=== PATIENT | female | born 1935 | race Caucasian/White ===

== ENCOUNTER → 2017-12-05 | Outpatient (CLI) | payer MEDICARE, OTHER ==
[~2017-12-05] MED LIST: ACET325 PO; AZO CRANBERRY250 MG PO; BACL10 PO; CALCIUM 600+D1 EACH PO; CENTRUM SILVER1 EAC2 PO; HYDACE5 PO; HYDCHL12.5; HYDCHL25 PO; LISI20; LOSA25 PO; MELATONIN5 M1 PO; Omeprazole20 M1; POTASSIUM99 MG PO; PROBIOTIC1 EAC1 PO; TRAM50 PO; VITAMIN D31000 UNIT PO; Vision Vitamin1 EACH PO
[2017-12-05 15:59] LABS: BASOPHILS ABSOLUTE AUTO 0.04 K/mm3 (0.00-0.23); BASOPHILS PERCENT AUTO 0 % (0-2); EOSINOPHILS ABSOLUTE AUTO 0.21 K/mm3 (0.00-0.68); EOSINOPHILS PERCENT AUTO 2 % (0-6); Hemoglobin 11.3 g/dL (11.5-16.0); IMMATURE GRAN ABSOLUTE AUTO 0.02 K/mm3 (0.00-0.10); IMMATURE GRAN PERCENT AUTO 0 % (0-1); LYMPHOCYTES ABSOLUTE AUTO 1.24 K/mm3 (0.84-5.20); LYMPHOCYTES PERCENT AUTO 14 % (21-46); MONOCYTES ABSOLUTE AUTO 0.84 K/mm3 (0.16-1.47); MONOCYTES PERCENT AUTO 9 % (4-13); Mean Corpuscular HGB 26.5 pg (26.0-34.0); Mean Corpuscular HGB Conc 32.3 g/dL (31.5-36.5); Mean Corpuscular Volume 82 fL (80-100); Mean Platelet Volume 10.6 fL (9.1-12.4); NEUTROPHILS ABSOLUTE AUTO 6.68 K/mm3 (1.96-9.15); NEUTROPHILS PERCENT AUTO 74 % (41-73); Platelet Count 217 K/mm3 (150-400); RDW Coefficient Variation 14.2 % (11.7-14.2); RDW Standard Deviation 41.5 fL (35.1-46.3); Red Blood Cell Count 4.26 M/mm3 (3.80-5.20); White Blood Cell Count 9.03 K/mm3 (4.00-11.30)
[2017-12-05 16:15] LABS: Alanine Aminotransfer (ALT/SGP 28 U/L (12-78); Albumin, Blood 3.5 g/dL (3.4-5.0); Albumin/Globulin Ratio 0.9 (0.8-1.8); Alk Phos 88 U/L (40-126); Anion Gap 8 mmol/L (6-16); Aspartate Aminotrans (AST/SGOT 22 U/L (12-37); Bilirubin, Total 0.4 mg/dL (0.1-1.0); Blood Urea Nitrogen 14 mg/dL (8-24); Bun/Creatinine Ratio 18.7 (12.0-20.0); CO2, Blood 30 mmol/L (21-32); Calcium, Blood 8.9 mg/dL (8.5-10.1); Chloride, Blood 100 mmol/L (98-108); Creatinine, Blood 0.75 mg/dL (0.40-1.00); Glomerular Filtration Rate >60 (60-); Glucose, Blood 91 mg/dL (70-99); Potassium, Blood 3.7 mmol/L (3.5-5.5); Sodium, Blood 138 mmol/L (136-145); Total Protein, Blood 7.5 g/dL (6.4-8.2)
== END ==
LOC: LAB EV 15:55
PROVIDERS: Physician Assistant Surgical
DX: R10.9 Unspecified abdominal pain (principal)
CPT/HCPCS: 80053; 85025

== ENCOUNTER 2018-06-11 07:16 | Day surgery (SDC) | payer MEDICARE, OTHER ==
[~2018-06-11] VITALS: Ht 152.4 cm; Wt 70.0 kg
[~2018-06-11 07:16] MED LIST changes: -ACET325 PO; -AZO CRANBERRY250 MG PO; -BACL10 PO; -CALCIUM 600+D1 EACH PO; -CENTRUM SILVER1 EAC2 PO; -LOSA25 PO; -MELATONIN5 M1 PO; -POTASSIUM99 MG PO; -PROBIOTIC1 EAC1 PO; -TRAM50 PO; -VITAMIN D31000 UNIT PO; -Vision Vitamin1 EACH PO
[2018-06-11] MEDS ORDERED: CALCIUM 600+D1 EACH PO (07:56)
[2018-06-11] MEDS ORDERED: ACET325 PO (07:57)
[2018-06-11] MEDS ORDERED: POTASSIUM99 MG PO (07:57)
[2018-06-11] MEDS ORDERED: PROBIOTIC1 EAC1 PO (07:57)
[2018-06-11] MEDS ORDERED: TRAM50 PO (07:58)
[2018-06-11] MEDS ORDERED: VITAMIN D31000 UNIT PO (07:59)
[2018-06-11] MEDS ORDERED: BACL10 PO (07:59)
[2018-06-11] MEDS ORDERED: LOSA25 PO (07:59)
[2018-06-11] MEDS ORDERED: Vision Vitamin1 EACH PO (07:59)
[2018-06-11] MEDS ORDERED: CENTRUM SILVER1 EAC2 PO (08:00)
[2018-06-11] MEDS ORDERED: AZO CRANBERRY250 MG PO (08:01)
[2018-06-11] MEDS ORDERED: MELATONIN5 M1 PO (08:01)
== END 2018-06-11 09:56 | disposition home or self-care (01) ==
LOC: ORSCSDS 07:16
PROVIDERS: Orthopaedic Surgery
PROC: 01N50ZZ Release Median Nerve, Open Approach (ICD-10-PCS; principal; 2018-06-11 08:45)
DX: G56.02 Carpal tunnel syndrome, left upper limb (principal); I10 Essential (primary) hypertension; K21.9 Gastro-esophageal reflux disease without esophagitis; E78.5 Hyperlipidemia, unspecified; N28.9 Disorder of kidney and ureter, unspecified; Z79.899 Other long term (current) drug therapy
CPT/HCPCS: J0690; J2405; J3010; J7120

== ENCOUNTER 2020-03-16 08:56 | Day surgery (SDC) | payer MEDICARE, OTHER ==
[~2020-03-16] VITALS: Ht 152.4 cm; Wt 68.5 kg
[~2020-03-16 08:56] MED LIST changes: +ACET325 PO; +ASPIR 8181 M1 PO; +ATOR40TA PO; +AZO CRANBERRY PO; +AZO CRANBERRY250 MG PO; +Aspir 8181 MG PO; +BACL10 PO; +BACLOFEN5 MG PO; +CALCIUM 600+D1 EACH PO; +CALCIUM600 MG PO; +CENTRUM SILVER1 EAC2 PO; +CLOP75 PO; +ERGO400 PO; +FURO20 PO; +HYDROCHLOROTH12.5 MG PO; +LOSA25 PO; +LOSARTAN POTAS100 M1 PO; +MELA3 PO; +OMEP20ER PO; -Omeprazole20 M1; +Omeprazole20 M1 PO; +POTASSIUM99 MG PO; +PROBIOTIC1 EAC1 PO; +PROBIOTIC1 EAC7 PO; +TRAM50 PO; +VITAMIN D31000 UNIT PO; +Vision Vitamin1 EACH PO
== END 2020-03-16 11:14 | disposition home or self-care (01) ==
LOC: ORSCSDS 08:56
PROVIDERS: Internal Medicine Gastroenterology
PROC: 0DBK8ZX Excision of Ascending Colon, Via Natural or Artificial Opening Endoscopic, Diagnostic (ICD-10-PCS; principal; 2020-03-16 10:15)
DX: Z12.11 Encounter for screening for malignant neoplasm of colon (principal); Z86.010 Personal history of colon polyps; D12.2 Benign neoplasm of ascending colon; K64.8 Other hemorrhoids; K57.30 Diverticulosis of large intestine without perforation or abscess without bleeding; I10 Essential (primary) hypertension; E78.5 Hyperlipidemia, unspecified; K21.9 Gastro-esophageal reflux disease without esophagitis; E66.9 Obesity, unspecified; Z68.30 Body mass index [BMI] 30.0-30.9, adult; Z86.73 Personal history of transient ischemic attack (TIA), and cerebral infarction without residual deficits; Z79.01 Long term (current) use of anticoagulants; Z79.82 Long term (current) use of aspirin; Z79.899 Other long term (current) drug therapy
CPT/HCPCS: 88305; J2704; J7120

== ENCOUNTER 2021-11-28 09:50 | Day surgery (SDC) | payer MEDICARE, OTHER ==
[~2021-11-28] VITALS: Ht 152.4 cm; Wt 71.0 kg
[~2021-11-28 09:50] MED LIST changes: +CALCIUM CARBON500 M1 PO; -CALCIUM600 MG PO
[2021-11-28] MEDS ORDERED: Crestor20 MG PO (10:37)
[2021-11-28] MEDS ORDERED: PREG25 PO (10:37)
--- NOTE | 2021-11-28 12:31 | NUR ---
PT FULLY AWAKE POST PROCEDURE. DENIES ANY PAIN OR DISCOMFORT. CALL LIGHT IN REACH. VS STABLE, WILL CONTINUE TO MONITOR UNTIL PT DISCHARGE.
--- NOTE | 2021-11-28 13:00 | NUR ---
IV DC'D, CATH INTACT. PT HAS VERBALIZED UNDERSTANDING OF DC INSTRUCTIONS AND FOLLOW UP INFO. ABLE TO TOLERATE PO FLUIDS WITHOUT DIFFICULTY.
== END 2021-11-28 23:59 | disposition home or self-care (01) ==
LOC: MHTC 09:50
DX: R93.1 Abnormal findings on diagnostic imaging of heart and coronary circulation (principal); R60.9 Edema, unspecified; R09.89 Other specified symptoms and signs involving the circulatory and respiratory systems; I10 Essential (primary) hypertension; I25.10 Atherosclerotic heart disease of native coronary artery without angina pectoris; I70.0 Atherosclerosis of aorta; I37.1 Nonrheumatic pulmonary valve insufficiency; Z88.0 Allergy status to penicillin
CPT/HCPCS: 93312; 93325; A9270; J2704; J7120

== ENCOUNTER → 2023-06-19 | Outpatient (CLI) | payer MEDICARE, OTHER ==
[~2023-06-19] MED LIST changes: +Crestor20 MG PO; +PREG25 PO
== END ==
LOC: PLD 11:48 → LAB SHORT 11:48
DX: D48.5 Neoplasm of uncertain behavior of skin (principal)
CPT/HCPCS: 88305

== ENCOUNTER → 2023-11-15 | Outpatient (CLI) | payer MEDICARE, OTHER | LOC: LAB SHORT 10:00 | DX: Z48.817 Encounter for surgical aftercare following surgery on the skin and subcutaneous tissue (principal) | CPT/HCPCS: 87070; 87077; 87147; 87186; 87205 ==